=== PATIENT | female | born 1950 | race Caucasian/White ===

== ENCOUNTER 2021-11-15 05:46 | Day surgery (SDC) | payer OTHER ==
[2021-11-15] MEDS ORDERED: NA CHLORIDE 0.9% 1,000 ML ONE (06:28)
[2021-11-15 06:35] LABS: Absolute Lymphocytes (CBC) 3.8 K/uL (0.7-4.9); Hematocrit 37.2 % (36.0-45.0); MPV 7.9 fL (7.6-11.3); RBC Red Blood Cell Count 4.33 M/uL (3.86-4.86)
[2021-11-15 06:46] LABS: Potassium 4.4 mmol/L (3.5-5.1)
[2021-11-15] MEDS ORDERED: KETOROLAC 30 MG/ML INJ ONE (07:12)
[2021-11-15] MEDS ORDERED: LIDOCAINE 1% MPF 30 ML VIAL ONE (07:12)
[2021-11-15] MEDS ORDERED: propofoL 200 MG/20 ML VIAL IV ONE (07:12)
[2021-11-15] MEDS ORDERED: dexAMETHasone 10 MG/ML VIAL ONE (07:12)
[2021-11-15] MEDS ORDERED: FENTANYL CITR 100 MCG/2 ML ONE (07:12)
[2021-11-15] MEDS ORDERED: ONDANSETRON 4 MG/2 ML VIAL ONE (07:12)
--- NOTE | 2021-11-15 07:31 | RAD REPORT ---
EXAM DESCRIPTION: RAD - Chest Pa And Lat (2 Views) - 11/15/2021 6:14 am CLINICAL HISTORY: pre COMPARISON: Chest Pa And Lat (2 Views) dated 10/09/2016; CHEST PA AND LAT 2 VIEW dated 11/23/2008; CH EST PA AND LAT 2 VIEW dated 09/23/2004 FINDINGS: Lines: None. Lungs: No evidence of edema or pneumonia. Pleural: No significant pleural effusions or pneumothorax. Cardiac: Cardiomegaly. Bones: No acute fractures. Other: IMPRESSION: No acute cardiopulmonary disease.
[2021-11-15] MEDS ORDERED: CEFAZOLIN/NS 1gm 1 GM/50 ML BAG ONE (07:42)
--- NOTE | 2021-11-15 08:45 | P.BOP ---
Preoperative diagnosis: infected left breast mass Postoperative diagnosis: same Primary procedure: Left breast lumpectomy Estimated blood loss: <10cc Specimen: left breast mass 3x3 cm Findings: infected left breast mass Anesthesia: General Drain(s): Other ([place]) Transferred to: Recovery Room Condition: Good
[2021-11-15] MEDS ORDERED: CODEINE 30MG/APAP 300MG TAB ONE (09:35)
[2021-11-15 10:30] VITALS: BP 133/65; TEMP 97.2; O2SAT 97
--- NOTE | 2021-11-15 11:17 | OP ---
Date of Procedure: 11/15/2021 Surgeon: Terrence Rivera MD Preoperative Diagnosis: Infected left breast palpable mass. Postoperative Diagnosis: Infected left breast palpable mass. Procedure: Left breast lumpectomy. Finding: Infected left breast mass. Anesthesia: General plus local. Indication: This is the case of a female, who comes to us with a mass on and off coming on the left breast with drainage. The patient has recent mammograms, but failed to show this lump is palpable. I cannot feel it and she can feel it, today was not draining. She says a few days ago it was drainin g and she has a few months ago was just draining on and off pus. Because it is hard to follow the im aging because we cannot find, she wants the lump removed and I agreed. The benefits, alternatives, a nd risks of excisional biopsy of infected left breast lump mass fully explained, which include, but n ot limited to infection, bleeding, damage to adjacent structures, anesthesia complication, recurrence , [place], and even . This lumpectomy will be done, but I am not sure we are going to be able to peace se incision or partially close it, so she understands she might need wound care. She is diabetic. S he was explained the importance of keeping that under control and getting her antibiotics. She has s [facility] surgery planned in the next few weeks and she wants to address this issue now. She does not want this infection to be on and off because it may compromise the shoulder surgery that she needed d ue to pain. The benefits, alternatives, and risks were fully explained of left breast lumpectomy, wh ich include, but not limited to infection, bleeding, damage to adjacent structures, anesthesia compli cation, recurrence, [place], and even . She also understands this may not relieve any symptoms. She might need more than one surgical intervention. The area of concern was marked by me and this patie nt in the holding room. She had some erythema of the area, but today, once again, we did not see the discharge she had before. She understands that based on the final pathology, she might need more th an 1 surgical intervention. She understood, signed a consent. Procedure In Detail: The patient was brought to the operating room, placed in supine position. Anes thesia was done without complication. Left breast was prepped and draped in the usual sterile fashio n. A wedge incision was made to include not only the breast lump, but also the skin. This goes abou t 3 x 3 cm. There are some loculations that we have to explore and drain. Specimen sent to the path ologist. Cultures were sent. Irrigation was done. Hemostasis was obtained. She does not want to d o the packing, but at the same time closing the incision completely will be of benefit neither. So, we proceeded to then partially close if the incision partially open, put a Idris in that area and t his allows to us at least drain for the next few days while she completes her antibiotics and she agr eed with that plan. The area was approximated and left the wound to drain with a Arco placed in t hat area and secured in place with 3-0 nylon. The area was covered with sterile dressings. The graeme ent tolerated the procedure well. The patient was sent to recovery in stable condition. BROOKLYN/EUGENIA Voice ID: [id number] Report ID: [id number]
--- NOTE | 2021-11-15 11:19 | DS ---
Date of Discharge: 11/15/2021 Diagnosis: Infected left breast mass. Procedure: Left breast lumpectomy. Disposition: Home. Activity: As tolerated. No heavy lifting. Plan: Follow up in my office in 1 week. Call for appointment at [phone]. She is already started o n Bactrim and Tylenol No.3. We are going to continue with the same. She just has to change the dres sings on top every time it get wet, leave the Crane drain intact. She is going to follow in my off ice in the next few days. Once again, we are going to follow up on the biopsy of this mass to make s ure there is nothing else we have to do and she was encouraged to continue self monthly exams of her breast and also follow the mammograms as indicated for her conditions. BROOKLYN/EUGENIA Voice ID: [id number] Report ID: [id number]
== END 2021-11-15 10:00 | disposition home or self-care (01) ==
LOC: OR 05:46
PROVIDERS: ATTEND Surgery
PROC: 0HBU0ZZ Excision of Left Breast, Open Approach (ICD-10-PCS; principal; 2021-11-15 07:30)
DX: L72.0 Epidermal cyst (principal); Z20.822 Contact with and (suspected) exposure to COVID-19
CPT/HCPCS: 93005; 87070; 85025; 80048; 36415; 87205 ×2; 82947 ×2; 88304; 87075; 87077; 87186; 71046; 19301; U0003; J2704; J3010; J0690; J7030; J2405; 88305; J1100